=== PATIENT | male | born 1980 | race African-American/Black ===

== ENCOUNTER 2019-05-19 19:27 | Emergency (ER) | payer MEDICAID ==
[~2019-05-19] VITALS: Ht 172.7 cm; Wt 77.1 kg
--- NOTE | 2019-05-19 20:16 | NUR ---
CALLED FOR PT IN WR. NO RESPONSE
--- NOTE | 2019-05-19 20:23 | NUR ---
CALLED PATIENT IN WAITING ROOM. NO RESPONSE.
--- NOTE | 2019-05-19 21:15 | NUR ---
CALLED PATIENT IN WAITING ROOM. NO RESPONSE.
[2019-05-19 21:28] VITALS: BP 133/87
--- NOTE | 2019-05-19 21:28 | NUR ---
PT BIBS. C/O "HAVING SI, WANT TO CHECK INTO A [facility] HOSPITAL" VSS AOX4. AMBULATORY -SOB NOTED.
[2019-05-19 21:51] LABS: BASOPHILS # (AUTO) 0.1 /CMM (0.0-0.2); BASOPHILS % (AUTO) 2.1 % (0.0-2.0); EOSINOPHILS % (AUTO) 5.9 % (0.0-6.0); HEMATOCRIT 37 % (39-51); HEMOGLOBIN 11.8 g/dL (13.5-17.5); LYMPHOCYTES # (AUTO) 1.6 /CMM (0.8-4.8); LYMPHOCYTES % (AUTO) 27.9 % (20.0-44.0); MEAN CORPUSCULAR HGB CONC 32 g/dl (31.0-36.0); MEAN CORPUSCULAR VOLUME 78 fL (80-96); MONOCYTES # (AUTO) 0.9 /CMM (0.1-1.30); MONOCYTES % (AUTO) 15.6 % (2.0-12.0); NEUTROPHILS # (AUTO) 2.8 /CMM (1.8-8.9); NEUTROPHILS % (AUTO) 48.5 % (43.0-81.0); PLATELET COUNT (AUTO) 298 /CMM (150-450); RED BLOOD CELL COUNT(AUTO) 4.78 MIL/uL (4.5-6.0); WHITE BLOOD COUNT (AUTO) 5.8 K/uL (4.3-11.0)
[2019-05-19 21:53] LABS: APPEARANCE,URINE Clear (CLEAR); BILIRUBIN,URINE Negative (NEGATIVE); BLOOD, URINE Trace-intact Ery/uL (NEGATIVE); COLOR,URINE Yellow (YELLOW); KETONES,URINE Negative (NEGATIVE); LEUKOCYTE ESTERASE ,URINE Negative (NEGATIVE); NITRITE, URINE Negative (NEGATIVE); PH,URINE 5.5 (5.0-8.0); PROTEIN,URINE 30 mg/dl (NEGATIVE); UGLUCOSE Negative (NEGATIVE)
[2019-05-19 21:59] LABS: CALCIUM, SERUM 8.3 mg/dL (8.5-10.1); CARBON DIOXIDE 27 mmol/L (21-32); CHLORIDE 105 mmol/L (98-107); GLUCOSE 143 mg/dL (74-106); SODIUM SERUM 137 mmol/L (136-145); UREA NITROGEN, BLOOD 16 mg/dL (7-18)
[2019-05-19 22:02] LABS: BACTERIA,URINE Few /HPF (None Seen); RBC,URINE 0-2 /HPF (0-2); SQUAMOUS EPITHELIAL CELL,UR Rare /HPF (None Seen); WBC,URINE 0-2 /HPF (0-3)
[2019-05-19 22:04] LABS: ALANINE AMINOTRANSFERASE 21 U/L (12-78); ALBUMIN 3.2 g/dL (3.4-5.0); ALCOHOL, BLOOD < 3 mg/dL (0-0); ALKALINE PHOSPHATASE 88 U/L (46-116); ASPARTATE AMINOTRANSFERASE 15 U/L (15-37); BILIRUBIN,DIRECT 0.1 mg/dL (0.0-0.2); BILIRUBIN,TOTAL 0.2 mg/dL (0.2-1.0); TOTAL PROTEIN, SERUM 6.8 g/dL (6.4-8.2)
[2019-05-19 22:05] LABS: ACETAMINOPHEN 0 ug/ml (10-30); SALICYLATE 2.3 mg/dL (2.8-20.0)
[2019-05-19 23:07] LABS: EOSINOPHILS % (MANUAL) 7 % (0-4); LYMPHOCYTES % (MANUAL) 28 % (16-48); MONOCYTES % (MANUAL) 11 % (0-11.0); NEUTROPHILS % (MANUAL) 52 (42-76)
--- NOTE | 2019-05-20 01:30 | NUR ---
PT ACCEPTED TO [facility] ACCEPTING MD: DR. ARIAS/DR. CARMONA NUMBER FOR REPORT: [phone]
--- NOTE | 2019-05-20 01:41 | NUR ---
[facility] ETA:0330. #[id number]
--- NOTE | 2019-05-20 03:14 | NUR ---
REPORT GIVEN TO NED COLBY.
== END 2019-05-19 20:43 | disposition left against medical advice (07) ==
LOC: ER 19:30
DX: R45.851 Suicidal ideations (principal); D64.9 Anemia, unspecified; F20.0 Paranoid schizophrenia; F32.9 Major depressive disorder, single episode, unspecified; F12.10 Cannabis abuse, uncomplicated
CPT/HCPCS: 36415; 80048; 80076; 80305; 80307; 80329; 81001; 85025; 99284; G0480; 81000-TC

== ENCOUNTER 2019-06-04 18:02 | Emergency (ER) | payer MEDICAID ==
[~2019-06-04] VITALS: Ht 172.7 cm; Wt 78.9 kg
--- NOTE | 2019-06-04 18:21 | NUR ---
PATIENT ARRIVED AT UNIT AMBULATORY. PATIENT A/O X 3. NO ACUTE DISTRESS. NO C/O PAIN OR DISCOMFORT. PATIENT REPORTS SUICIDAL IDEATION, WITH PLAN TO DRINK A LOT OF ALCOHOL. VERBALIZED THAT HIS LAST DRINK WAS A COUPLE OF HOURS AGO. BELONGINGS REMOVED FROM PATIENT AND SECURED IN LOCKER. PATIENT CONNECTED TO MONITOR. SITTER AT BEDSIDE. WILL CONTINUE TO MONITOR
[2019-06-04 18:33] LABS: BASOPHILS # (AUTO) 0.1 /CMM (0.0-0.2); BASOPHILS % (AUTO) 1.1 % (0.0-2.0); EOSINOPHILS % (AUTO) 4.9 % (0.0-6.0); HEMATOCRIT 40 % (39-51); HEMOGLOBIN 12.7 g/dL (13.5-17.5); LYMPHOCYTES # (AUTO) 1.2 /CMM (0.8-4.8); MEAN CORPUSCULAR HGB CONC 32 g/dl (31.0-36.0); MEAN CORPUSCULAR VOLUME 78 fL (80-96); MONOCYTES # (AUTO) 0.6 /CMM (0.1-1.30); MONOCYTES % (AUTO) 11.8 % (2.0-12.0); NEUTROPHILS % (AUTO) 59.2 % (43.0-81.0); PLATELET COUNT (AUTO) 355 /CMM (150-450); RED BLOOD CELL COUNT(AUTO) 5.11 MIL/uL (4.5-6.0); WHITE BLOOD COUNT (AUTO) 5.1 K/uL (4.3-11.0)
[2019-06-04 18:40] LABS: CALCIUM, SERUM 8.3 mg/dL (8.5-10.1); CARBON DIOXIDE 25 mmol/L (21-32); CHLORIDE 107 mmol/L (98-107); CREATININE 1.1 mg/dL (0.6-1.3); GLUCOSE 108 mg/dL (74-106); POTASSIUM 3.8 mmol/L (3.5-5.1); SODIUM SERUM 140 mmol/L (136-145); UREA NITROGEN, BLOOD 13 mg/dL (7-18)
[2019-06-04 18:46] LABS: ALANINE AMINOTRANSFERASE 15 U/L (12-78); ALBUMIN 3.4 g/dL (3.4-5.0); ALCOHOL, BLOOD 14 mg/dL (0-0); ALKALINE PHOSPHATASE 89 U/L (46-116); ASPARTATE AMINOTRANSFERASE 16 U/L (15-37); BILIRUBIN,DIRECT 0.1 mg/dL (0.0-0.2); BILIRUBIN,TOTAL 0.2 mg/dL (0.2-1.0); TOTAL PROTEIN, SERUM 7.1 g/dL (6.4-8.2)
[2019-06-04 19:01] LABS: ACETAMINOPHEN < 5 ug/ml (10-30); SALICYLATE 2.4 mg/dL (2.8-20.0)
--- NOTE | 2019-06-04 19:32 | NUR ---
URINE COLLECTED AND SENT TO LAB
--- NOTE | 2019-06-04 19:36 | NUR ---
RECEIVED REPORT FROM EARNESTINE FOX, PT IS AAOX4, NOT IN RESPIRATORY DISTRESS, HOOKED TO MONITOR, KEPT RESTED AND COMFOR, WILL CONTINUE TO MONITOR.
[2019-06-04 19:44] LABS: APPEARANCE,URINE Clear (CLEAR); BILIRUBIN,URINE Negative (NEGATIVE); BLOOD, URINE Negative Ery/uL (NEGATIVE); COLOR,URINE Yellow (YELLOW); KETONES,URINE Negative (NEGATIVE); LEUKOCYTE ESTERASE ,URINE Negative (NEGATIVE); NITRITE, URINE Negative (NEGATIVE); PH,URINE 5.5 (5.0-8.0); PROTEIN,URINE Negative (NEGATIVE); UGLUCOSE Negative (NEGATIVE); UROBILINOGEN,URINE 0.2 EU/dL (0.2)
--- NOTE | 2019-06-04 20:50 | NUR ---
TONNY COLBY CRISISTEAM AT BEDSIDE FOR EVAL.
--- NOTE | 2019-06-04 22:25 | NUR ---
PT WILL BE TRANSFERRED TO [address] [address] NUMBER FOR REPORT: [phone] EXT [id number] (SOUTH UNIT) ADMITTING MD: DR. MORRIS ADMITTING DX: [id number]
--- NOTE | 2019-06-04 22:27 | NUR ---
PENDING TRANSPORTATION ETA. CONFIRMATION NUMBER [id number]
--- NOTE | 2019-06-04 23:26 | NUR ---
REPORT GIVEN TO EARNESTINE CHANDLER OF [facility].
--- NOTE | 2019-06-04 23:41 | NUR ---
SYSTEMS MECHANIC CALLED. [facility] IS GOING TO TRANSPORT PT. ETA 45 MINUTES.
[2019-06-05 00:26] VITALS: BP 112/61
== END 2019-06-05 00:27 ==
LOC: ER 18:06
DX: F20.0 Paranoid schizophrenia (principal); R45.851 Suicidal ideations; I10 Essential (primary) hypertension; E11.9 Type 2 diabetes mellitus without complications; F32.9 Major depressive disorder, single episode, unspecified; F10.10 Alcohol abuse, uncomplicated; F17.200 Nicotine dependence, unspecified, uncomplicated; F12.10 Cannabis abuse, uncomplicated; Y90.0 Blood alcohol level of less than 20 mg/100 ml; Z59.0 Homelessness; Z04.6 Encounter for general psychiatric examination, requested by authority
CPT/HCPCS: 36415; 80048; 80076; 80305; 80307; 80329; 81001; 85025; 99285; G0480; 81000-TC

== ENCOUNTER 2019-06-16 19:20 | Emergency (ER) | payer MEDICAID ==
[~2019-06-16] VITALS: Ht 172.7 cm; Wt 77.1 kg
--- NOTE | 2019-06-16 19:20 | NUR ---
"BIB SELF C/O NONRADIATING SHARP MIDSTERNAL CP SINCE 1400. SI WITH PLAN TO STAB SELF WITH A SYRINGE." pt to bed 12, pt aaox4, -sob noted, pt on monitor, all belongings kept in locker for safety, sitter by bedside, pending md bales
[2019-06-16 20:18] LABS: BASOPHILS # (AUTO) 0.1 /CMM (0.0-0.2); BASOPHILS % (AUTO) 1.1 % (0.0-2.0); EOSINOPHILS % (AUTO) 3.6 % (0.0-6.0); HEMATOCRIT 39 % (39-51); HEMOGLOBIN 12.7 g/dL (13.5-17.5); LYMPHOCYTES # (AUTO) 1.2 /CMM (0.8-4.8); LYMPHOCYTES % (AUTO) 22.2 % (20.0-44.0); MEAN CORPUSCULAR HGB CONC 32 g/dl (31.0-36.0); MEAN CORPUSCULAR VOLUME 78 fL (80-96); MONOCYTES # (AUTO) 0.5 /CMM (0.1-1.30); MONOCYTES % (AUTO) 10.3 % (2.0-12.0); NEUTROPHILS # (AUTO) 3.3 /CMM (1.8-8.9); NEUTROPHILS % (AUTO) 62.8 % (43.0-81.0); PLATELET COUNT (AUTO) 370 /CMM (150-450); RED BLOOD CELL COUNT(AUTO) 5.08 MIL/uL (4.5-6.0); WHITE BLOOD COUNT (AUTO) 5.2 K/uL (4.3-11.0)
[2019-06-16 20:42] LABS: APPEARANCE,URINE Clear (CLEAR); BILIRUBIN,URINE Negative (NEGATIVE); BLOOD, URINE Negative Ery/uL (NEGATIVE); COLOR,URINE Yellow (YELLOW); KETONES,URINE Negative (NEGATIVE); LEUKOCYTE ESTERASE ,URINE Negative (NEGATIVE); NITRITE, URINE Negative (NEGATIVE); PROTEIN,URINE Negative (NEGATIVE); UGLUCOSE Negative (NEGATIVE)
[2019-06-16 20:43] LABS: ACETAMINOPHEN < 2 ug/ml (10-30); ALANINE AMINOTRANSFERASE 21 U/L (12-78); ALBUMIN 3.4 g/dL (3.4-5.0); ALCOHOL, BLOOD < 3 mg/dL (0-0); ALKALINE PHOSPHATASE 88 U/L (46-116); ASPARTATE AMINOTRANSFERASE 17 U/L (15-37); BILIRUBIN,TOTAL 0.2 mg/dL (0.2-1.0); CALCIUM, SERUM 8.5 mg/dL (8.5-10.1); CARBON DIOXIDE 27 mmol/L (21-32); CHLORIDE 103 mmol/L (98-107); CREATININE 1.3 mg/dL (0.6-1.3); GLUCOSE 83 mg/dL (74-106); POTASSIUM 4.1 mmol/L (3.5-5.1); SALICYLATE 3.6 mg/dL (2.8-20.0); SODIUM SERUM 135 mmol/L (136-145); TOTAL PROTEIN, SERUM 7.5 g/dL (6.4-8.2); UREA NITROGEN, BLOOD 17 mg/dL (7-18)
--- NOTE | 2019-06-16 22:25 | NUR ---
PER ROLLER OPERATOR JUDY SHAH RN MUST ARRANGE FOR PT TO GO TO [facility]
--- NOTE | 2019-06-17 00:17 | NUR ---
[facility] CALLED, NO BEDS AVAILABLE. PACKET FAXED TO [phone]
--- NOTE | 2019-06-17 01:16 | NUR ---
PT IN BED, SLEEPING, VSS, -SOB, NAD NOTED.
--- NOTE | 2019-06-17 07:52 | NUR ---
PATIENT RESTING INSIDE ROOM. NO ACUTE DISTRESS. SITTER AT BEDSIDE. PATIENT BELONGINGS IN LOCKER. WILL CONTINUE TO MONITOR ACCORDINGLY
--- NOTE | 2019-06-17 09:01 | NUR ---
facesheet and clinicals re faxed to [facility] intake.
--- NOTE | 2019-06-17 11:08 | NUR ---
ARIADNA contacted [facility] intake dept and spoke with Floresita regarding follow-up. Floresita informed ARIADNA that the case is being reviewed by [facility] and she will contact ARIADNA within an hour.
--- NOTE | 2019-06-17 13:12 | NUR ---
ARIADNA contacted [facility] intake dept and spoke with Floresita again. Per Floresita, pt. has been accepted to [place], however they are awaiting a bed. ARIADNA updated Halle in ED.
--- NOTE | 2019-06-17 13:12 | NUR ---
ADIS INFORMED ME THAT PT HAS BEEN ACCEPTED TO [facility]. WE ARE AWAITING A BED ASSIGNMENT
[2019-06-17 14:06] VITALS: BP 107/72
--- NOTE | 2019-06-17 14:17 | NUR ---
PLACED CALL TO ALBERTO OLIVER 4 ([phone] ext. [phone]), AND GAVE REPORT TO SALOME COLBY. PATIENT WILL BE ON ROOM 412-A Addendum: 06/17/19 at 1546 by CHADD CLARIFICATION: ALBERTO MONET
--- NOTE | 2019-06-17 14:25 | NUR ---
[facility] ETA 90 MIN.TRIP # [phone]
--- NOTE | 2019-06-17 16:11 | NUR ---
Patient discharged to [facility] in stable condition. Written and verbal after care instructions given. Patient verbalizes understanding of instruction. belongings taken from safe and given to transportation. no report of missing inventory. ID band removed from patient.
== END 2019-06-17 16:13 ==
LOC: ER 19:22
DX: R45.851 Suicidal ideations (principal); D64.9 Anemia, unspecified; F12.10 Cannabis abuse, uncomplicated; I10 Essential (primary) hypertension; F32.9 Major depressive disorder, single episode, unspecified; F20.0 Paranoid schizophrenia; F10.10 Alcohol abuse, uncomplicated; F17.200 Nicotine dependence, unspecified, uncomplicated; Y90.0 Blood alcohol level of less than 20 mg/100 ml; Z59.0 Homelessness
CPT/HCPCS: 36415; 71045; 80048; 80076; 80305; 80307; 80329; 81001; 84484; 85025; 93005; 99285; G0480; 81000-TC

== ENCOUNTER 2019-06-24 16:33 | Emergency (ER) | payer MEDICAID ==
[~2019-06-24] VITALS: Ht 172.7 cm; Wt 74.8 kg
--- NOTE | 2019-06-24 16:40 | NUR ---
+SI/-HI, pt states "I will take all my pills and stab myself with syringe". On room air, breathing evenly and unlabored. Kept comfortable, will continue to monitor accordingly.
--- NOTE | 2019-06-24 16:41 | NUR ---
security at bedside for wanding
--- NOTE | 2019-06-24 16:50 | NUR ---
MECHANIC WELDER AT BEDSIDE FOR BLOOD DRAW
[2019-06-24 16:51] LABS: BASOPHILS # (AUTO) 0.1 /CMM (0.0-0.2); BASOPHILS % (AUTO) 0.9 % (0.0-2.0); EOSINOPHILS % (AUTO) 3.9 % (0.0-6.0); HEMATOCRIT 39 % (39-51); HEMOGLOBIN 12.4 g/dL (13.5-17.5); LYMPHOCYTES # (AUTO) 1.2 /CMM (0.8-4.8); MEAN CORPUSCULAR HGB CONC 32 g/dl (31.0-36.0); MEAN CORPUSCULAR VOLUME 77 fL (80-96); MONOCYTES # (AUTO) 0.7 /CMM (0.1-1.30); MONOCYTES % (AUTO) 11.5 % (2.0-12.0); NEUTROPHILS # (AUTO) 3.6 /CMM (1.8-8.9); NEUTROPHILS % (AUTO) 62.7 % (43.0-81.0); PLATELET COUNT (AUTO) 367 /CMM (150-450); RED BLOOD CELL COUNT(AUTO) 5.08 MIL/uL (4.5-6.0); WHITE BLOOD COUNT (AUTO) 5.8 K/uL (4.3-11.0)
--- NOTE | 2019-06-24 16:51 | NUR ---
URINE OBTAINED AND SENT TO LAB
[2019-06-24 16:58] LABS: APPEARANCE,URINE Clear (CLEAR); BILIRUBIN,URINE Negative (NEGATIVE); BLOOD, URINE Negative Ery/uL (NEGATIVE); COLOR,URINE Yellow (YELLOW); KETONES,URINE Negative (NEGATIVE); LEUKOCYTE ESTERASE ,URINE Negative (NEGATIVE); NITRITE, URINE Negative (NEGATIVE); PH,URINE 5.5 (5.0-8.0); PROTEIN,URINE 30 mg/dl (NEGATIVE); UGLUCOSE Negative (NEGATIVE); UROBILINOGEN,URINE 0.2 EU/dL (0.2)
[2019-06-24 17:03] LABS: CALCIUM, SERUM 8.5 mg/dL (8.5-10.1); CARBON DIOXIDE 26 mmol/L (21-32); CHLORIDE 104 mmol/L (98-107); GLUCOSE 193 mg/dL (74-106); POTASSIUM 4.1 mmol/L (3.5-5.1); SODIUM SERUM 137 mmol/L (136-145); UREA NITROGEN, BLOOD 18 mg/dL (7-18)
[2019-06-24 17:11] LABS: BACTERIA,URINE Rare /HPF (None Seen); RBC,URINE NONE SEEN /HPF (0-2); SQUAMOUS EPITHELIAL CELL,UR Few /HPF (None Seen); WBC,URINE NONE SEEN /HPF (0-3)
[2019-06-24 17:13] LABS: ACETAMINOPHEN < 2 ug/ml (10-30); ALANINE AMINOTRANSFERASE 22 U/L (12-78); ALBUMIN 3.4 g/dL (3.4-5.0); ALCOHOL, BLOOD < 3 mg/dL (0-0); ALKALINE PHOSPHATASE 86 U/L (46-116); ASPARTATE AMINOTRANSFERASE 19 U/L (15-37); BILIRUBIN,DIRECT 0.1 mg/dL (0.0-0.2); BILIRUBIN,TOTAL 0.3 mg/dL (0.2-1.0); SALICYLATE 2.5 mg/dL (2.8-20.0); TOTAL PROTEIN, SERUM 7.3 g/dL (6.4-8.2)
[2019-06-24] MEDS ORDERED: OLANZAPINE 5 MG TABLET PO ONE (17:30)
[2019-06-24] MEDS ORDERED: OLANZAPINE 5 MG TABLET ONE (17:41)
--- NOTE | 2019-06-24 18:41 | NUR ---
Patient is resting comfortably in bed with eyes closed. Easily aroused. VSS
--- NOTE | 2019-06-24 18:45 | NUR ---
SPOKED TO [facility], CLINICALS FAXED AWAITING CALL BACK.
--- NOTE | 2019-06-24 18:50 | NUR ---
Patient is resting comfortably in bed with eyes closed. Easily aroused. VSS
--- NOTE | 2019-06-24 19:34 | NUR ---
REPORT GIVEN TO MEGAN Jeff RN, [facility]
--- NOTE | 2019-06-24 19:34 | NUR ---
Julissa garcia in [facility] - 06/24/19 at 1934 by GALI REPORT GIVEN TO MEGAN Jeff RN
--- NOTE | 2019-06-24 19:35 | NUR ---
REPORT GIVEN TO BUSHRA COLBY
--- NOTE | 2019-06-24 20:23 | NUR ---
PT ACCEPTED TO [facility]. AWAITING TRANSFER INFORMATION.
--- NOTE | 2019-06-24 21:23 | NUR ---
CHART UNDER REVIEW BY RN JIGGER CROWN POUNCING MACHINE OPERATOR. WILL CALL BACK SHORTLY WITH UPDATES.
--- NOTE | 2019-06-24 21:46 | NUR ---
ASAD FROM [facility] CALLED RE: PT GOING TO [facility]. PT IS GOING TO UNIT 62. ACCEPTING MD IS DR MELARA, AND DR FOSS CALL REPORT TO ANGELA RN AT [phone]
--- NOTE | 2019-06-24 21:48 | NUR ---
CALLED [facility] RE: TRANSPORT FOR PT TO [facility] TRIP #: [id number] ETA: [id number]
--- NOTE | 2019-06-24 22:28 | NUR ---
CALLING REPORT TO EARNESTINE MILLER.
--- NOTE | 2019-06-24 22:32 | NUR ---
GIVING REPORT TO EARNESTINE GREEN AT [facility].
[2019-06-24 22:48] VITALS: BP 121/78
== END 2019-06-24 22:48 ==
LOC: ER 16:33
DX: F28 Other psychotic disorder not due to a substance or known physiological condition (principal); F20.9 Schizophrenia, unspecified; F32.9 Major depressive disorder, single episode, unspecified; F19.10 Other psychoactive substance abuse, uncomplicated; I10 Essential (primary) hypertension; E11.9 Type 2 diabetes mellitus without complications; F17.200 Nicotine dependence, unspecified, uncomplicated; Z59.0 Homelessness
CPT/HCPCS: 36415; 80048; 80076; 80305; 80307; 80329; 81001; 85025; 99285; G0480; 81000-TC

== ENCOUNTER 2019-06-29 06:04 | Emergency (ER) | payer MEDICAID ==
[~2019-06-29] VITALS: Ht 172.7 cm; Wt 77.1 kg
--- NOTE | 2019-06-29 06:10 | NUR ---
PT C/C HEARING VOICES FOR 10 YEARS, +SI, PLAN TO OVERDOSE ON PILLS, -HI. NAD NOTED. RESP EVEN UNLABORED. PT DENIES PAIN AT THIS TIME. PT BELONGINGS PLACED IN LABELED BAGS IN A LABELED LOCKER AWAY FROM THE PATIENT. PT ON MONITOR IN BED 15 WITH SITTER AT BEDSIDE. WILL CONTINUE TO MONITOR.
--- NOTE | 2019-06-29 06:30 | NUR ---
PHLEB AT BEDSIDE FOR LAB DRAW
[2019-06-29 06:49] LABS: BASOPHILS # (AUTO) 0.1 /CMM (0.0-0.2); BASOPHILS % (AUTO) 0.9 % (0.0-2.0); EOSINOPHILS % (AUTO) 3.2 % (0.0-6.0); HEMATOCRIT 38 % (39-51); HEMOGLOBIN 12.4 g/dL (13.5-17.5); LYMPHOCYTES # (AUTO) 1.2 /CMM (0.8-4.8); LYMPHOCYTES % (AUTO) 17.9 % (20.0-44.0); MEAN CORPUSCULAR HGB CONC 32 g/dl (31.0-36.0); MEAN CORPUSCULAR VOLUME 77 fL (80-96); MONOCYTES # (AUTO) 0.7 /CMM (0.1-1.30); MONOCYTES % (AUTO) 10.1 % (2.0-12.0); NEUTROPHILS # (AUTO) 4.4 /CMM (1.8-8.9); NEUTROPHILS % (AUTO) 67.9 % (43.0-81.0); PLATELET COUNT (AUTO) 382 /CMM (150-450); RED BLOOD CELL COUNT(AUTO) 5.02 MIL/uL (4.5-6.0); WHITE BLOOD COUNT (AUTO) 6.5 K/uL (4.3-11.0)
[2019-06-29 07:00] LABS: CARBON DIOXIDE 26 mmol/L (21-32); CHLORIDE 105 mmol/L (98-107); CREATININE 1.1 mg/dL (0.6-1.3); GLUCOSE 125 mg/dL (74-106); SODIUM SERUM 139 mmol/L (136-145); UREA NITROGEN, BLOOD 16 mg/dL (7-18)
[2019-06-29 07:07] LABS: ALANINE AMINOTRANSFERASE 19 U/L (12-78); ALBUMIN 3.2 g/dL (3.4-5.0); ALKALINE PHOSPHATASE 98 U/L (46-116); ASPARTATE AMINOTRANSFERASE 7 U/L (15-37); BILIRUBIN,TOTAL 0.1 mg/dL (0.2-1.0); SALICYLATE 1.1 mg/dL (2.8-20.0); TOTAL PROTEIN, SERUM 6.8 g/dL (6.4-8.2)
[2019-06-29 07:08] LABS: ACETAMINOPHEN 0 ug/ml (10-30); ALCOHOL, BLOOD < 3 mg/dL (0-0)
--- NOTE | 2019-06-29 08:07 | NUR ---
[facility] CL[facility]ALS [facility]ENT TO [facility].
[2019-06-29 09:52] VITALS: BP 100/61
--- NOTE | 2019-06-29 09:53 | NUR ---
FOOD TRAY PROVIDED.
--- NOTE | 2019-06-29 10:12 | NUR ---
SPOKE WITH BERTIN FROM [facility]. [facility] TO [facility]. AMANDA-DR. ARIAS [facility]-DR. MCCULLOUGH. ACCEPTING RN-GEOVANI, .
--- NOTE | 2019-06-29 10:20 | NUR ---
REPORT GIVEN TO GEOVANI AT [facility]. AWAITING TRANSPORT.
--- NOTE | 2019-06-29 10:31 | NUR ---
[facility] ETA 15-20 MINS. TRIP # [id number]
--- NOTE | 2019-06-29 10:53 | NUR ---
REPORT GIVEN TO EMT FOR PT TRANSFER TO [facility] ROOM 108-A
--- NOTE | 2019-06-29 11:11 | NUR ---
Sherita was called for pebblesjosecodey message Addendum: 06/29/19 at 1116 by LIZZ did not call for this patient (charity for 14)
== END 2019-06-29 11:16 ==
LOC: ER 06:06
DX: R45.851 Suicidal ideations (principal); F28 Other psychotic disorder not due to a substance or known physiological condition; I10 Essential (primary) hypertension; J45.909 Unspecified asthma, uncomplicated; E11.9 Type 2 diabetes mellitus without complications; F17.200 Nicotine dependence, unspecified, uncomplicated; Z59.0 Homelessness
CPT/HCPCS: 36415; 80048; 80076; 80305; 80307; 80329; 85025; 99285; G0480